=== PATIENT | male | born 1930 | race Hispanic/Latino ===

== ENCOUNTER 2018-04-24 05:59 | Inpatient (IN) | payer MEDICARE, BC ==
[2018-04-17 14:33] VITALS: BMI 31.3
[2018-04-24 06:52] LABS: BASO # 0.1 K/uL (0.0-0.2); BASO % 0.9 % (0.0-2.0); EOS # 0.3 K/uL (0.0-0.7); EOS % 4.6 % (0.0-4.0); HEMOGLOBIN 14.9 g/dL (12.0-18.0); LYMPH # 1.9 K/uL (1.0-4.3); LYMPH % 26.6 % (20.0-40.0); MEAN CELL VOLUME 96.4 fl (80.0-94.0); MEAN CORPUSCULAR HEMOGLOBIN 33.2 pg (27.0-31.0); MEAN CORPUSCULAR HGB CONC 34.5 g/dL (33.0-37.0); MEAN PLATELET VOLUME 7.3 fl (7.2-11.7); MONO # 0.9 K/uL (0.0-0.8); MONO % 12.8 % (0.0-10.0); NEUT # 3.9 K/uL (1.8-7.0); NEUT % 55.1 % (50.0-75.0); NRBC % 0.2 % (0.0-0.0); RBC 4.49 Mil/uL (4.40-5.90); RED CELL DISTRIBUTION WIDTH 13.9 % (11.5-14.5); WHITE BLOOD COUNT 7.1 K/uL (4.8-10.8)
[2018-04-24] MEDS ORDERED: Bupivacaine HCl 0.5% PF (30 ml) Inj ONE (07:09)
[2018-04-24] MEDS ORDERED: Absorbable Gelatin Sponge Size 12-7 ONE (07:10)
[2018-04-24] MEDS ORDERED: Lactated Ringer's 1,000 ML IV ONE (07:10)
[2018-04-24] MEDS ORDERED: Thrombin Topical 5,000 Int Units Spray Kit ONE (07:10)
[2018-04-24] MEDS ORDERED: Lidocaine 1% w Epi 1:100,000 Inj ONE (07:10)
[2018-04-24] MEDS ORDERED: Propofol 10 mg/ml Inj (20 ML) ONE (07:15)
[2018-04-24] MEDS ORDERED: Rocuronium 10 mg/ml (5 ml) ONE (07:16)
[2018-04-24] MEDS ORDERED: ePHEDrine 50 mg/ml Inj ONE (07:16)
[2018-04-24] MEDS ORDERED: Succinylcholine 200 mg/10 ml Inj IV ONE (07:16)
[2018-04-24] MEDS ORDERED: Lidocaine 4% (Laryng-O-Jet) Kit MM ONE (07:16)
--- NOTE | 2018-04-24 07:34 | CP.PCM.CON ---
History of Present Illness - History of Present Illness History of Present Illness: Neurosurgical consult: Dr. Blanca Patient is a 87 y/o male with PMH of CAD presents for elective lumbar laminotomy with fusion. He has had chronic lower back pain which has significantly worsened over the last 2 months negatively affecting his daily activities. The pain radiates to the LLE with occassional numbness and tingling. The pain has been resistant to conservative management with oral medications and exercises. He has had prior right hemilaminotomy in February 2017, which has resolved his RLE radiculopathy. He denies any bowel or bladder dysfunction, well as saddle paresthesias. He also denies CP/SOB/N/V/D/fever/dysuria/melena. Review of Systems - Review of Systems All systems: reviewed and no additional remarkable complaints except Review of Systems: as per HPI Past Patient History - Past Medical History & Family History Past Medical History?: Yes Past Family History: Reviewed and not pertinent - Past Social History Smoking Status: Never Smoked Alcohol: > 2 Drinks/Day (200ml of cognac) Drugs: Denies - CARDIAC Hx Cardiac Disorders: Yes Hx Hypertension: Yes - PULMONARY Hx Respiratory Disorders: No - HEENT Hx HEENT Problems: Yes Hx Cataracts: Yes - RENAL Hx Chronic Kidney Disease: Yes Hx Kidney Stones: Yes - ENDOCRINE/METABOLIC Hx Endocrine Disorders: No - HEMATOLOGICAL/ONCOLOGICAL Hx Blood Disorders: No - INTEGUMENTARY Hx Dermatological Problems: No - MUSCULOSKELETAL/RHEUMATOLOGICAL Hx Musculoskeletal Disorders: Yes Hx Rheumatoid Arthritis: Yes (general) - GASTROINTESTINAL Hx Gastrointestinal Disorders: No - GENITOURINARY/GYNECOLOGICAL Hx Genitourinary Disorders: No - PSYCHIATRIC Hx Psychophysiologic Disorder: No - SURGICAL HISTORY Hx Surgeries: Yes Hx Appendectomy: Yes Hx Cataract Extraction: Yes (bilateral) Other/Comment: cardiac stent--2007,sleep apnea--plasty, right lumbar hemilaminotomy L4-5 (02/09/17) - ANESTHESIA Hx Anesthesia: Yes Hx Anesthesia Reactions: No Has any member of the family had a problem w/ anesthesia?: No Meds Allergies/Adverse Reactions: Allergies Allergy/AdvReac Type Severity Reaction Status Date / Time No Known Allergies Allergy Verified 04/17/18 14:32 - Medications Medications: as per Med rec Physical Exam - Constitutional Appears: Well, No Acute Distress - Head Exam Head Exam: ATRAUMATIC, NORMOCEPHALIC - Eye Exam Eye Exam: EOMI, Normal appearance, PERRL - ENT Exam ENT Exam: Mucous Membranes Moist - Neck Exam Neck exam: Positive for: Normal Inspection - Respiratory Exam Respiratory Exam: NORMAL BREATHING PATTERN - Cardiovascular Exam Cardiovascular Exam: +S1, +S2 - GI/Abdominal Exam GI & Abdominal Exam: Soft. absent: Tenderness - Extremities Exam Extremities exam: Positive for: normal inspection - Back Exam Additional comments: Midline surgical wound well healed No midline tenderness, no paraspinal tenderness sensation intact SP/DP/TN motor intact 4/5 LLE EHL/FHl/TA/G/Q/HS/HF neg clonus +SLR LLE - Neurological Exam Neurological exam: Alert, CN II-XII Intact, Oriented x3 - Psychiatric Exam Psychiatric exam: Normal Affect, Normal Mood - Skin Skin Exam: Normal Color, Warm Results - Vital Signs Recent Vital Signs: Last Vital Signs Temp 98 F 04/24/18 07:00 Pulse 67 04/24/18 07:00 Resp 22 04/24/18 07:00 BP 153/69 H 04/24/18 07:00 Pulse Ox 96 04/24/18 07:00 - Labs Result Diagrams: 04/24/18 06:30 Labs: Laboratory Results - last 24 hr 04/24/18 04/24/18 06:30 06:30 WBC 7.1 RBC 4.49 Hgb 14.9 Hct 43.3 MCV 96.4 H MCH 33.2 H MCHC 34.5 RDW 13.9 Plt Count 218 MPV 7.3 Neut % (Auto) 55.1 Lymph % (Auto) 26.6 [place] % (Auto) 12.8 H Eos % (Auto) 4.6 H Baso % (Auto) 0.9 Neut # (Auto) 3.9 Lymph # (Auto) 1.9 [place] # (Auto) 0.9 H Eos # (Auto) 0.3 Baso # (Auto) 0.1 BBK History Checked No verified bt - Impressions Impression: Lumbar MRI reveals L4-5 spondylolisthesis and central canal stenosis, disc herniation and degenerative changes at multiple levels Assessment & Plan (1) Lumbar spondylosis Assessment and Plan: -OR today for Lumbar laminotomy and fusion -Admit to Dr. Young -NPO -Risks/benefits/alternatives discussed with patient who understands and agrees to proceed with above procedure -above d/w Dr. Blanca in agreement Status: Acute
[2018-04-24] MEDS ORDERED: Midazolam 2 MG/2 ML VIAL ONE (07:43)
[2018-04-24] MEDS ORDERED: Lidocaine/Epi 1% 1:100000 20 ML IJ ONE (08:05)
[2018-04-24] MEDS ORDERED: HEMOSTATIC MATRIX 10 ML DIS.NEEDLE TOP ONE ×2 (08:20)
[2018-04-24] MEDS ORDERED: Dexamethasone 4 mg/1 ml ONE (08:28)
[2018-04-24] MEDS ORDERED: Thrombin Topical 5,000 Int Units Spray Kit TOP ONE ×2 (08:29→09:30)
[2018-04-24] MEDS ORDERED: Gelatin Sponge 10 X 12.5 cm (Gelfilm Sterile Non Opthalmic) MM ONE ×2 (08:29→09:30)
[2018-04-24] MEDS ORDERED: Phenylephrine 10 mg/ml Inj ONE (08:30)
[2018-04-24] MEDS ORDERED: Neostigmine 1:1000 (1 mg/ml) Inj ONE (08:48)
[2018-04-24] MEDS ORDERED: APROTININ/FIBRINOGEN(TISSEEL) ONE (08:52)
[2018-04-24] MEDS ORDERED: Desflurane Inhalation Anesthetic Liq (240 ml) ONE (09:27)
[2018-04-24] MEDS ORDERED: Bupivacaine 0.5% Inj(30mL) IJ ONE (09:30)
--- NOTE | 2018-04-24 09:52 | PCM.SURG1 ---
Surgeon's Initial Post Op Note - Surgeon's Notes Surgeon: Antione Blanca MD Patient Support Partner: Steven Cotton PA-C Type of Anesthesia: General Endo Anesthesia Administered By: Alber ROSARIO Pre-Operative Diagnosis: Lumbar spondylosis Operative Findings: Lumbar spondylosis, Left L4-L5 HNP Post-Operative Diagnosis: as above Operation Performed: Left L4-L5 laminotomy with instrumental fusion Specimen/Specimens Removed: none Estimated Blood Loss: EBL {In ML}: 20 Blood Products Given: N/A Drains Used: Moses Zepeda (x2) Post-Op Condition: Good Date of Surgery/Procedure: 04/24/18 Time of Surgery/Procedure: 07:40
[2018-04-24] MEDS ORDERED: oxyCODONE 10 mg Immediate Release Tab PO PRN (09:55)
[2018-04-24] MEDS ORDERED: oxyCODONE 5 mg Immediate Release Tab PO PRN (09:55)
[2018-04-24] MEDS: Lactated Ringer's 1,000 ML IV SCH ×3 (11:35→21:16)
--- NOTE | 2018-04-24 13:53 | CP.PCM.HP ---
History of Present Illness - History of Present Illness History of Present Illness: Patient seen and examined at bedside s/p elective Left L4-L5 laminotomy with instrumental fusion, patient tolerated well the procedure, reports minimal back discomfort. Patient is a 87 y/o male with PMH of CAD. He has had chronic lower back pain which has significantly worsened over the last 2 months negatively affecting his daily activities. The pain radiates to the LLE with occassional numbness and tingling and has been resistant to conservative management with oral medications and exercises. He has had prior right hemilaminotomy in February 2017. He denies any N/V/ chills and afebrile at tis time. No bowel or bladder dysfunction. He also denies CP/SOB/dysuria/melena. PMH: HTN,CAD,HLD, asthma PSH: appendectomy, coronary stent x2, hemilaminotomy in February 2017 FMH: denies NKDA Meds: see bellow SH: no smoke, etoh or ilicit drugs. Present on Admission - Present on Admission Any Indicators Present on Admission: No Review of Systems - Review of Systems All systems: reviewed and no additional remarkable complaints except (HPI) Past Patient History - Past Medical History & Family History Past Medical History?: Yes Past Family History: Reviewed and not pertinent - Past Social History Smoking Status: Never Smoked Alcohol: > 2 Drinks/Day (200ml of cognac) - CARDIAC Hx Cardiac Disorders: Yes Hx Hypertension: Yes - PULMONARY Hx Respiratory Disorders: No - HEENT Hx HEENT Problems: Yes Hx Cataracts: Yes - RENAL Hx Chronic Kidney Disease: Yes Hx Kidney Stones: Yes - ENDOCRINE/METABOLIC Hx Endocrine Disorders: No - HEMATOLOGICAL/ONCOLOGICAL Hx Blood Disorders: No - INTEGUMENTARY Hx Dermatological Problems: No - MUSCULOSKELETAL/RHEUMATOLOGICAL Hx Musculoskeletal Disorders: Yes Hx Rheumatoid Arthritis: Yes (general) - GASTROINTESTINAL Hx Gastrointestinal Disorders: No - GENITOURINARY/GYNECOLOGICAL Hx Genitourinary Disorders: No - PSYCHIATRIC Hx Psychophysiologic Disorder: No - SURGICAL HISTORY Hx Surgeries: Yes Hx Appendectomy: Yes Hx Cataract Extraction: Yes (bilateral) Other/Comment: cardiac stent--2007,sleep apnea--plasty, right lumbar hemilaminotomy L4-5 (02/09/17) - ANESTHESIA Hx Anesthesia: Yes Hx Anesthesia Reactions: No Has any member of the family had a problem w/ anesthesia?: No Meds Allergies/Adverse Reactions: Allergies Allergy/AdvReac Type Severity Reaction Status Date / Time No Known Allergies Allergy Verified 04/17/18 14:32 Physical Exam - Constitutional Appears: No Acute Distress - Head Exam Head Exam: NORMAL INSPECTION - Eye Exam Eye Exam: EOMI, PERRL - Respiratory Exam Respiratory Exam: Clear to Auscultation Bilateral, NORMAL BREATHING PATTERN - Cardiovascular Exam Cardiovascular Exam: REGULAR RHYTHM, +S1, +S2 - GI/Abdominal Exam GI & Abdominal Exam: Normal Bowel Sounds, Soft. absent: Distended, Tenderness - Extremities Exam Extremities exam: Negative for: calf tenderness - Back Exam Additional comments: mild paraspinal tenderness, dressing clean and dry. - Neurological Exam Neurological exam: Alert, CN II-XII Intact, Oriented x3 - Skin Skin Exam: Dry, Warm Results - Vital Signs Recent Vital Signs: Last Vital Signs Temp 97.5 F L 04/24/18 11:30 Pulse 77 04/24/18 12:33 Resp 18 04/24/18 11:30 BP 168/77 H 04/24/18 11:30 Pulse Ox 95 04/24/18 11:30 - Labs Result Diagrams: 04/25/18 05:32 04/25/18 05:32 Labs: Laboratory Results - last 24 hr 04/24/18 04/24/18 04/24/18 06:30 06:30 06:40 WBC 7.1 RBC 4.49 Hgb 14.9 Hct 43.3 MCV 96.4 H MCH 33.2 H MCHC 34.5 RDW 13.9 Plt Count 218 MPV 7.3 Neut % (Auto) 55.1 Lymph % (Auto) 26.6 [place] % (Auto) 12.8 H Eos % (Auto) 4.6 H Baso % (Auto) 0.9 Neut # (Auto) 3.9 Lymph # (Auto) 1.9 [place] # (Auto) 0.9 H Eos # (Auto) 0.3 Baso # (Auto) 0.1 Blood Type AB POSITIVE Blood Type Confirm AB POSITIVE Antibody Screen Negative BBK History Checked No verified bt Assessment & Plan - Assessment and Plan (Free Text) Assessment: 87 yo male patient with PMH of HTN, CAD s/p stent x2 ,HLD, asthma s/p elective Left L4-L5 laminotomy with instrumental fusion POD 0. Plan: - VSS, afebrile - Pain management - advance diet as tolerated - continue home meds - surgery care as per surgical team - rest of plan as ordered Case discussed with Dr Acosta.
[2018-04-24] MEDS ORDERED: Dexamethasone 4 MG in Sodium Chloride 0.9% 50 ML IVPB SCH (16:00)
[2018-04-24] MEDS ORDERED: Pneumococcal 23-Valent Vaccine IM ONE (16:00)
[2018-04-24] MEDS: ceFAZolin 2 GM in Sodium Chloride 0.9% 100 ML IVPB SCH (17:10)
[2018-04-24] MEDS: Dexamethasone 4 mg/1 ml IVP SCH ×2 (17:10→22:32)
[2018-04-24] MEDS ORDERED: Albuterol 0.083% Inhal Sol (2.5 mg/3 mL) UD INH ONE (23:23)
[2018-04-25] MEDS: ceFAZolin 2 GM in Sodium Chloride 0.9% 100 ML IVPB SCH (01:22)
--- NOTE | 2018-04-25 02:58 | OP ---
PROCEDURE DATE: 04/24/2018 PREOPERATIVE DIAGNOSIS: Lumbar spondylosis. POSTOPERATIVE DIAGNOSIS: Lumbar spondylosis. PROCEDURES: L4-L5 lumbar laminectomy, L4-L5 pedicle screw fixation and instrumentation, L4-L5 posterolateral fusion. Fluoroscopy has been used. Microscope has been used. SURGEON: Antione Blanca MD DRYER [employer] WASHER MECHANIC: Steven Cotton. Steven Cotton is a physician bilingual medical assistant who helped me perform the surgery, stayed from beginning to the end. DESCRIPTION OF PROCEDURE: The patient was brought to the operating room and after general endotracheal anesthesia, placed in the prone position. Back of the lumbar area was thoroughly prepped and draped in a standard sterile manner. Over the lumbar laminectomy skin incision scar, skin has been incised. Bleeding skin has been controlled with bipolar fairground operator. After using a Bovie fairground operator, paraspinal muscles have been attached to the spinous process of the lamina of L4-L5. The left side has been exposed. The right side care was taken to expose as there was a previous laminotomy. Scar tissue has been removed. At this point, by using a traditional landmark, point of entry has been noted for the pedicle screws at L4 and L5. Initially K wire, later drill has been used in order to enter the pedicles of L4-L5 under fluoroscopy guided control. Polyaxial titanium screws of Amendia spinal element system have been placed. Titanium rods have been placed. Slight distraction has been applied. Cap nuts have been used now to secure them. At this point, under microscope illumination, the lamina of L4-L5 and medial part of the L4-L5 have been drilled to actual thickness. By using a fine Kerrison punch, thinned out the lamina, medial part of facets and ligamentum flavum has been removed, decomposing the area of L4-L5. Lateral aspect of the facet joint and transverse process decorticated. Demineralized bone was placed in the area achieving a posterolateral fusion. Hemostasis was best achieved. Moses drain was placed in the wound and brought through separate stab neck skin incision. Muscles and fascia were closed with 1 Vicryl, subcutaneous tissue with 3-0 Vicryl, and skin with intradermal 3-0 Vicryl stitches. The patient tolerated the procedure. After the procedure, he was mobilized to the recovery room in stabilized condition. Antione Blanca MD [facility] # [id number]
[2018-04-25] MEDS: Dexamethasone 4 mg/1 ml IVP SCH ×2 (05:38→09:54)
[2018-04-25] MEDS: Lactated Ringer's 1,000 ML IV SCH ×2 (05:46→06:21)
[2018-04-25 05:49] LABS: HEMOGLOBIN 12.6 g/dL (12.0-18.0); MEAN CELL VOLUME 98.2 fl (80.0-94.0); MEAN CORPUSCULAR HEMOGLOBIN 33.1 pg (27.0-31.0); MEAN CORPUSCULAR HGB CONC 33.7 g/dL (33.0-37.0); RBC 3.8 Mil/uL (4.40-5.90); RED CELL DISTRIBUTION WIDTH 14.2 % (11.5-14.5); WHITE BLOOD COUNT 10.4 K/uL (4.8-10.8)
[2018-04-25 06:02] LABS: CALCIUM 9.2 mg/dL (8.4-10.2)
[2018-04-25 08:18] VITALS: RESP 20
--- NOTE | 2018-04-25 11:36 | CP.PCM.PN ---
Subjective - Date & Time of Evaluation Date of Evaluation: 04/25/18 Time of Evaluation: 10:00 - Subjective Subjective: Patient seen and examined OOB to chair comfortable. Has no complaints of pain at this time. Able to ambulate without difficulties or aid. Notes that LLE symptoms have completely resolved following surgery. Desires to be discharged home due to inability to sleep in hospital. Denies CP/SOOB/FIELDS/fever. Objective - Vital Signs/Intake and Output Vital Signs (last 24 hours): Temp Pulse Resp BP Pulse Ox 98.2 F 72 20 172/86 H 95 04/25/18 08:17 04/25/18 10:17 04/25/18 08:17 04/25/18 08:17 04/25/18 10:17 Intake and Output: 04/25/18 04/25/18 06:59 18:59 Intake Total 2000 Output Total 80 Balance 1920 - Medications Medications: Current Medications Acetaminophen (Tylenol 325mg Tab) 975 mg PO Q8 [facility] Last Admin: 04/25/18 01:22 Dose: Not Given Allopurinol (Zyloprim) 100 mg PO DAILY [facility] Last Admin: 04/25/18 09:56 Dose: 100 mg Bicalutamide (Casodex) 50 mg PO DAILY [facility] Last Admin: 04/25/18 09:42 Dose: 50 mg Cyclobenzaprine HCl (Flexeril) 10 mg PO Q8 PRN PRN Reason: Muscle spasm Dexamethasone (Decadron Inj) 4 mg IVP Q6 [facility] Last Admin: 04/25/18 09:54 Dose: 4 mg Docusate Sodium (Colace) 100 mg PO BID [facility] Last Admin: 04/25/18 09:54 Dose: 100 mg Gabapentin (Neurontin) 300 mg PO TID PRN PRN Reason: Pain, moderate (4-7) Lactated Ringer's (Lactated Ringer's) 1,000 mls @ 100 mls/hr IV .Q10H [facility] Last Admin: 04/25/18 06:21 Dose: Not Given Lactated Ringer's (Lactated Ringer's) 1,000 mls @ 125 mls/hr IV .Q8H [facility] Last Admin: 04/25/18 05:46 Dose: 125 mls/hr Morphine Sulfate (Morphine) 2 mg IVP Q4 PRN PRN Reason: Pain, severe (8-10) Last Admin: 04/24/18 21:08 Dose: 2 mg Morphine Sulfate (Morphine) 2 mg IVP Q10M PRN PRN Reason: Pain, moderate (4-7) Ondansetron HCl (Zofran Inj) 4 mg IVP ONCE PRN PRN Reason: Nausea/Vomiting Oxycodone HCl (Oxycodone Immediate Release Tab) 5 mg PO Q4 PRN PRN Reason: Pain, Mild (1-3) Oxycodone HCl (Oxycodone Immediate Release Tab) 10 mg PO Q4 PRN PRN Reason: Pain, moderate (4-7) - Labs Labs: 04/25/18 05:32 04/25/18 05:32 - Back Exam Additional comments: abd binder in place Dressings intact with minimal bloody drainage from drain sites. TONI drains x 2 with moderate bloody drainage, (L:270cc, R:265cc) sensation intact SP/DP/TN motor intact 4+/5 LLE EHL/FHl/TA/G/Q/HS/HF neg clonus Assessment and Plan (1) Lumbar spondylosis Assessment & Plan: POD#1 s/p L4-5 laminotomy with instrumental fusion doing well -maintain drains and monitor output, possible removal tomorrow -PT/OT WBAT -continue abx until drains removed -decadron taper -discharge planning -Patient desires to be discharge today however, Dr. Blanca who recommends to stay due to large drain outputs. Spoke to son, Carlos Collins Neon Tube Pumper, who agrees with plan. -above d/w Dr. Blanca in agreement Status: Acute
[2018-04-25 12:16] VITALS: BP 176/77; PULSE 68; TEMP 98; O2SAT 96
--- NOTE | 2018-04-25 15:30 | CP.PCM.PCO ---
Against Medical Advice - AMA Patient Left Against Medical Advice: The patient declines admission to the hospital and wishes to leave the hospital. This action is against my medical advice. This decision was made with informed refusal. The patient was told that admission to the hospital is necessary. Explanation of the reasons why were discussed. The risks of leaving were explained to the patient and include, but are not limited to, worsening of known or currently unknown conditions, permanent disability and from undiagnosed or untreated conditions. The patient has the capacity to make this informed decision and understands my explanation of the current medical problem and risks of leaving. The patient voluntarily accepts these risks and signed an AMA form documenting our conversation. The patient was given the opportunity to ask questions and reconsider. The patient was encouraged to return to the Emergency Department at any time for further care. Assessment & Plan - Assessment and Plan (Free Text) Assessment: 87 yo male patient with PMH of HTN, CAD s/p stent x2 ,HLD, asthma s/p elective Left L4-L5 laminotomy with instrumental fusion POD 1 -Patient desires to be discharge today due to inability to sleep in the hopsital, we recommends to stay as per Dr Blanca recommendation due to large drain outputs. Risks explained in detail, pt sign out AMA form. Advise to return if worsening or new symptoms.
== END 2018-04-25 15:50 | disposition left against medical advice (07) | DRG 460 ==
LOC: H.OPSURG 05:59 → H.ERHOLD 09:55 → H.TEL 12:15
PROVIDERS: ADMIT Family Medicine; ATTEND Family Medicine
PROC: 0SG00K1 Fusion of Lumbar Vertebral Joint with Nonautologous Tissue Substitute, Posterior Approach, Posterior Column, Open Approach (ICD-10-PCS; principal; 2018-04-24 07:45)
DX: M47.816 Spondylosis without myelopathy or radiculopathy, lumbar region (principal); M51.26 Other intervertebral disc displacement, lumbar region; M06.9 Rheumatoid arthritis, unspecified; E78.5 Hyperlipidemia, unspecified; I12.9 Hypertensive chronic kidney disease with stage 1 through stage 4 chronic kidney disease, or unspecified chronic kidney disease; N18.9 Chronic kidney disease, unspecified; I25.10 Atherosclerotic heart disease of native coronary artery without angina pectoris; Z95.5 Presence of coronary angioplasty implant and graft; G89.29 Other chronic pain; J45.909 Unspecified asthma, uncomplicated